=== PATIENT | female | born 1995 | race Two or more races ===

== ENCOUNTER 2019-07-02 15:46 | Inpatient (IN) | payer OTHER ==
[~2019-07-02] VITALS: Ht 160 cm; Wt 80.3 kg
[2019-07-02] MEDS ORDERED: MULT-447 PO (16:06)
[2019-07-02 16:30] VITALS: BP 116/70
[2019-07-02] MEDS ORDERED: IV NS 0.9% 1,000 ML IV PRN (16:35)
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
[2019-07-02] MEDS ORDERED: Z GUARD REMEDY 2 OZ OINT TP PRN (17:00)
[2019-07-02] MEDS ORDERED: ONDANSETRON HCL/PF 4 MG/2 ML VIAL IVP PRN (17:00)
[2019-07-02] MEDS ORDERED: ACETAMINOPHEN 325 MG TABLET PO PRN (17:00)
--- NOTE | 2019-07-02 18:25 | NUR ---
MS/RN - End of shift summary No new events seen, denies pain, no apparent distress, tolerated regular diet well, no c/o n/v. IVF NS at 75 ml/hr infusing well on the LAC with no complications. Per Dr. Palacios, ok for family to stay overnight. Will continue with current plan of care and will endorse to night RN accordingly.
--- NOTE | 2019-07-02 19:30 | NUR ---
MS RN OPENING NOTE RECEIVED PATIENT IN BED. A/O X4. TOLERATING ROOM AIR. NO SIGNS OF SOB. RESPIRATIONS ARE EVEN AND UNLABORED. DENIES PAIN AT THIS TIME. IV ACCESS IN LAC GAUGE 20 RUNNING NS @75ML/HR. FAMILY AT THE BEDSIDE. BED IS LOW AND LOCKED, HOB ELEVATED IN HIGH FOWLERS POSITION. CALL LIGHT WITHIN REACH. WILL CONTINUE TO MONITOR.
[2019-07-02 20:00] VITALS: BP 97/57
--- NOTE | 2019-07-02 22:00 | NUR ---
MS RN NOTE PATIENT ASKED TO BE DISCONNECTED FROM IVF TO USE THE RESTROOM. AFTER USING THE RESTROOM PATIENT REQUESTED NOT TO BE CONNECTED TO THE IVF THROUGHOUT NIGHT SO SHE CAN SLEEP COMFORTABLY. IVF STOPPED AT 2200. WILL CONTINUE TO MONITOR.
--- NOTE | 2019-07-03 07:00 | NUR ---
MS RN CLOSING NOTE PATIENT IS RESTING IN BED. A/O X4. TOLERATING ROOM AIR. NO SIGNS OF SOB NOTED THROUGHOUT SHIFT. RESPIRATIONS ARE EVEN AND UNLABORED. DENIES PAIN THROUGHOUT SHIFT. IV ACCESS MAINTAINED IN LAC PATENT AND SALINE LOCKED. FAMILY AT THE BEDSIDE. BED IS LOW AND LOCKED, HOB ELEVATED IN HIGH FOWLERS POSITION. CALL LIGHT WITHIN REACH. WILL ENDORSE TO NEXT SHIFT FOR DAVI.
[2019-07-03 07:05] LABS: BASOPHILS % (AUTO) 0.1 % (0.0-2.0); EOSINOPHILS % (AUTO) 0.6 % (0.0-6.0); HEMATOCRIT 41 % (33-45); HEMOGLOBIN 13.7 g/dL (11.5-14.8); LYMPHOCYTES % (AUTO) 22.8 % (20.0-44.0); MEAN CORPUSCULAR HGB CONC 33 g/dl (31.0-36.0); MEAN CORPUSCULAR VOLUME 87 fL (82-100); MONOCYTES # (AUTO) 0.5 /CMM (0.1-1.30); MONOCYTES % (AUTO) 5.4 % (2.0-12.0); NEUTROPHILS # (AUTO) 6.4 /CMM (1.8-8.9); NEUTROPHILS % (AUTO) 71.1 % (43.0-81.0); PLATELET COUNT (AUTO) 232 /CMM (150-450); RED BLOOD CELL COUNT(AUTO) 4.72 MIL/uL (4.0-5.2)
--- NOTE | 2019-07-03 07:22 | NUR ---
MS RN OPENING NOTES RECEIVED PATIENT FROM NOC SHIFT, ALERT AND ORIENTED X 4. VERBALLY RESPONSIVE AND ABLE TO FOLLOW DIRECTIONS. BREATHING REGULAR AND UNLABORED ON ROOM AIR. LEFT AC IV LINE G20 INTACT AND PATENT INFUSING WELL WITH NO BLEEDING OR S/S OF INFILTRATION/INFECTION NOTED. BOWEL AND BLADDER CONTINENT WITH BATHROOM PRIVILEGES. WILL MONITOR MORNING LABS, MRSA RESULT AND FOR PHYSICAL THERAPY EVALUATION.
[2019-07-03 07:35] LABS: ALBUMIN 3.3 g/dL (3.4-5.0); BILIRUBIN,TOTAL 0.4 mg/dL (0.2-1.0); CALCIUM, SERUM 8.7 mg/dL (8.5-10.1); CREATININE 0.5 mg/dL (0.6-1.3); MAGNESIUM 1.7 mg/dL (1.8-2.4); PHOSPHORUS 4.7 mg/dL (2.5-4.9); POTASSIUM 3.9 mmol/L (3.5-5.1); TOTAL PROTEIN, SERUM 6.6 g/dL (6.4-8.2)
[2019-07-03 07:44] LABS: THYROID STIMULATING HORMONE 3.43 uIU/mL (0.358-3.74)
[2019-07-03 09:38] VITALS: BP 99/61
[2019-07-03] MEDS ORDERED: Magnesium 1GM/D5W 100ML PREMIX 100 ML IV SCH (10:00)
[2019-07-03] MEDS ORDERED: MAGNESIUM OXIDE 400 MG TABLET PO ONE (11:00)
--- NOTE | 2019-07-03 16:14 | NUR ---
MS RN NOTES DISCHARGED PATIENT VIA WHEELCHAIR WHEELED OUT BY ETHNOARCHAEOLOGY PROFESSOR WITH HER BOYFRIEND. ALERT AND ORIENTED X 4 WITH NO DISTRESS NOTED. SKIN REMAINED INTACT; LEFT AC IV LINE AND ID BAND REMOVED. DISCUSSED DISCHARGE INSTRUCTIONS AND FOLLOW-UP. DISCHARGE PAPERS SIGNED AND ATTACHED TO THE CHART.
[2019-07-03 16:47] VITALS: BP 90/46
== END 2019-07-03 16:10 | disposition home or self-care (01) | DRG 566 ==
LOC: TELE 15:46 → MED 17:34
PROVIDERS: ADMIT Nurse Practitioner Acute Care; ATTEND Nurse Practitioner Acute Care
DX: O26.891 Other specified pregnancy related conditions, first trimester (principal); E83.42 Hypomagnesemia; V89.2XXA Person injured in unspecified motor-vehicle accident, traffic, initial encounter; Y92.410 Unspecified street and highway as the place of occurrence of the external cause; Z3A.11 11 weeks gestation of pregnancy; E88.09 Other disorders of plasma-protein metabolism, not elsewhere classified; R07.9 Chest pain, unspecified; R10.13 Epigastric pain
CPT/HCPCS: 36415; 80053-TC; 80061-TC; 83735-TC; 84100-TC; 84443-TC; 85025-TC; 87081-TC; 97116-TC; 97530-TC; G0378; J2405